=== PATIENT | male | born 1990 | race Caucasian/White ===

== ENCOUNTER 2022-11-05 15:48 | Emergency (ER) | payer SELFPAY ==
[~2022-11-05] VITALS: Ht 177.8 cm; Wt 85.0 kg
[2022-11-05] MEDS ORDERED: SODIUM CHLORIDE 0.9% 1,000 ML IV ONE (19:00)
[2022-11-05] MEDS ORDERED: ONDANSETRON HCL 4MG/2ML INJ IV ONE (19:00)
[2022-11-05] MEDS ORDERED: KETOROLAC 15MG/ML VIAL IV ONE (19:00)
[2022-11-05 19:29] LABS: BASOPHILS % 0.7 % (0.0-2.0); EOSINOPHILS % 1.6 % (0.0-5.0); HEMATOCRIT. 48.3 % (42.0-52.0); HEMOGLOBIN. 16.5 g/dL (14.0-18.0); LYMPHOCYTES % 22.5 % (20.0-50.0); MEAN CORPUSCULAR HEMOGLOBIN 30.5 pg (28.0-32.0); MEAN CORPUSCULAR VOLUME 89.2 fL (80.0-94.0); MONOCYTES % 7.8 % (2.0-8.0); NEUTROPHILS % 67.4 % (40.0-76.0); PLATELET 301 x1000/uL (130-400); RED BLOOD CELL COUNT 5.41 mill/uL (4.7-6.1); RED CELL DISTRIBUTION WIDTH 13.1 % (11.6-14.6)
[2022-11-05 19:36] LABS: CHLORIDE 102 mEq/L (98-107)
[2022-11-05 19:49] LABS: ETHANOL BLOOD < 10 mg/dL
[2022-11-05 20:16] LABS: *AMPHETAMINES SCREEN URINE NEGATIVE (NEGATIVE); *BARBITURATES SCREEN URINE NEGATIVE (NEGATIVE); *BENZODIAZEPINES SCREEN URINE NEGATIVE (NEGATIVE); *COCAINE SCREEN URINE NEGATIVE (NEGATIVE); CANNABINOID URINE SCREEN NEGATIVE (NEGATIVE); METHADONE URINE SCREEN NEGATIVE (NEGATIVE); OPIATES URINE SCREEN NEGATIVE (NEGATIVE); PHENCYCLIDINE URINE SCREEN NEGATIVE (NEGATIVE)
[2022-11-05] MEDS ORDERED: IBUP-2028 MT (23:03)
[2022-11-05 23:16] VITALS: BP 127/79
== END 2022-11-05 23:25 | disposition home or self-care (01) ==
LOC: ER 15:48
DX: R07.89 Other chest pain (principal); R11.2 Nausea with vomiting, unspecified; R51.9 Headache, unspecified
CPT/HCPCS: 36415; 71045; 80053; 80305; 80320; 83690; 83880; 84484; 85025; 93005; 96361; 96374; 96375; 99285; J1885; J2405; J7030; G0480